=== PATIENT | male | born 1945 | race Hispanic/Latino ===

== ENCOUNTER 2019-03-31 05:41 | Day surgery (SDC) | payer MEDICARE ==
[~2019-03-31] VITALS: Ht 180.3 cm; Wt 99.8 kg
[~2019-03-31 05:41] MED LIST: AMLO10TA7 PO; ATOR10TA69 PO; CYAN50008 PO; GLIP10TA9 PO; LISI1TAB29 PO; METF-446 PO; METO-391 PO; OMEP20TA25 PO; PSYL660P17 PO; RUTI1TAB2 PO; WARF7.5T49 PO
[2019-03-31] MEDS ORDERED: SODIUM CHLORIDE 0.9% 1000ML 1,000 ML IV ONE (06:22)
[2019-03-31 06:23] VITALS: BP 155/75
[2019-03-31 06:35] LABS: INR 1.01 (0.85-1.15); PROTHROMBIN TIME 10.6 SEC (9.6-11.6)
[2019-03-31] MEDS ORDERED: LIDOCAINE HCL 1% 20 ML VIAL ONE (06:59)
[2019-03-31] MEDS ORDERED: PHENYLEPHRINE HCL 10 MG/ML 1ML VIAL IV ONE ×2 (06:59→07:17)
[2019-03-31] MEDS ORDERED: PROPOFOL 10 MG/ML 20ML VIAL IV ONE (06:59)
[2019-03-31] MEDS ORDERED: GLYCOPYRROLATE 0.2 MG/ML 5 ML VIAL ONE (07:19)
[2019-03-31 07:35] VITALS: BP 93/48
[2019-03-31 07:40] VITALS: BP 94/45
[2019-03-31 07:45] VITALS: BP 118/51
[2019-03-31 07:50] VITALS: BP 122/62
== END 2019-03-31 08:30 | disposition home or self-care (01) ==
LOC: ENDO 05:41 → DAH 05:41 → ENDO 08:30
PROVIDERS: ATTEND Internal Medicine Gastroenterology
DX: Z12.11 Encounter for screening for malignant neoplasm of colon (principal); D12.0 Benign neoplasm of cecum; D12.5 Benign neoplasm of sigmoid colon; K29.50 Unspecified chronic gastritis without bleeding; K62.1 Rectal polyp; K22.8 Other specified diseases of esophagus; I45.10 Unspecified right bundle-branch block; I44.7 Left bundle-branch block, unspecified; I10 Essential (primary) hypertension; K21.9 Gastro-esophageal reflux disease without esophagitis; E66.9 Obesity, unspecified; I48.91 Unspecified atrial fibrillation; E11.9 Type 2 diabetes mellitus without complications; E78.5 Hyperlipidemia, unspecified; Z86.010 Personal history of colon polyps; Z79.01 Long term (current) use of anticoagulants; Z79.899 Other long term (current) drug therapy; Z98.890 Other specified postprocedural states
CPT/HCPCS: 36415; 43239; 45380; 45385; 82948 ×2; 85610; 88305; 93005; A4215; A4221; A4222; A4223; A4606; A4620; A4663; J2370 ×2; J2704; J3490; J7030